=== PATIENT | female | born 1985 | race Caucasian/White ===

== ENCOUNTER 2016-10-20 11:50 | Emergency (ER) | payer MEDICAID, OTHER ==
[~2016-10-20] VITALS: Ht 160 cm; Wt 77.0 kg
[~2016-10-20 11:50] MED LIST: FERR27TA PO; IBUP-1542 PO; ONDA4TAB35 PO; PREN-46 PO; PREN1TAB9 PO
[2016-10-20 11:58] VITALS: Ht 160 cm; Wt 77.0 kg
[2016-10-20] MEDS ORDERED: ONDANSETRON 4 MG INJ IV STA (13:37)
[2016-10-20] MEDS ORDERED: morphine 4 MG/ML VIAL IV STA (13:37)
[2016-10-20] MEDS ORDERED: SOD CHLORIDE 0.9% 1,000 ML IV STA (13:37)
--- NOTE | 2016-10-20 14:37 | RADRPT ---
PROCEDURE: US Abdomen (right upper quadrant). CLINICAL INDICATION: Abdominal pain. TECHNIQUE: Multiple real-time longitudinal and transverse images of the right upper quadrant of th e abdomen were acquired utilizing a curved array transducer. Images were reviewed on a high-resoluti on PACS workstation. COMPARISON: None FINDINGS: The liver is normal in size and echotexture without focal mass or intrahepatic biliary dilatation. There is normal hepatopedal flow within the main portal vein. The gallbladder is well displayed wit hout filling defects or wall thickening The common bile duct measures 4.2 mm in maximal dimension. The visualized portions of the pancreas are unremarkable with obscuration of the tail of the pancre as. No free fluid is identified. The right kidney measures 11.5 cm in length. There is normal echogenicity within the right kidney. There is no perinephric fluid collection. No hydronephrosis, mass, or calculus is seen. IMPRESSION: 1. Unremarkable right upper quadrant ultrasound. RPTAT: [facility] Physician Anthony Date Time Electronically viewed and signed by Physician Anthony on 10/20/2016 14:36 /
[2016-10-20 14:43] LABS: ADD UMIC NO; URINE BILIRUBIN (Dip) NEGATIVE (NEGATIVE); URINE BLOOD (Dip) NEGATIVE (NEGATIVE); URINE COLOR LT. YELLOW (YELLOW); URINE GLUCOSE (Dip) NEGATIVE (NEGATIVE); URINE KETONES (Dip) NEGATIVE (NEGATIVE); URINE LEUKOCYTE ESTERASE (Dip) NEGATIVE (NEGATIVE); URINE NITRITE (Dip) NEGATIVE (NEGATIVE); URINE TOTAL PROTEIN (Dip) NEGATIVE (NEGATIVE); URINE UROBILINOGEN (Dip) 1.0 E.U./dL (0.1-1.0)
[2016-10-20 14:43] LABS: ADD SCAN DIFF NO
[2016-10-20 14:50] LABS: BASOPHILS % 0.3 % (0.0-2.0); EOSINOPHILS # 0.1 10^3/ul (0.0-0.5); HEMATOCRIT 39.9 % (37.0-47.0); HEMOGLOBIN 12.8 g/dl (12.0-16.0); LYMPHOCYTES # 0.7 10^3/ul (0.8-2.9); LYMPHOCYTES % 7.6 % (15.0-51.0); MEAN CORPUSCULAR HEMOGLOBIN 26.8 pg (29.0-33.0); MEAN CORPUSCULAR HGB CONC 32.1 g/dl (32.0-37.0); MEAN CORPUSCULAR VOLUME 83.5 fl (82.0-101.0); MEAN PLATELET VOLUME 10.3 fl (7.4-10.4); MONOCYTE # 0.4 10^3/ul (0.3-0.9); MONOCYTES % 4.4 % (0.0-11.0); NEUTROPHIL # 7.9 10^3/ul (1.6-7.5); NEUTROPHILS % 86.5 % (39.0-77.0); PLATELET COUNT 265 10^3/UL (140-415); RED BLOOD COUNT 4.78 10^6/ul (4.20-5.40); RED CELL DISTRIBUTION WIDTH 13.7 % (11.5-14.5); WHITE BLOOD COUNT 9.1 10^3/ul (4.8-10.8)
[2016-10-20 15:09] LABS: CHLORIDE 101 mmol/L (97-110)
[2016-10-20 15:10] LABS: ALBUMIN 4.6 g/dl (3.3-4.9); POTASSIUM 3.6 mmol/L (3.5-5.1); SODIUM 143 mmol/L (135-144)
[2016-10-20 15:12] LABS: CREATININE 0.57 mg/dl (0.44-1.00)
[2016-10-20 15:13] LABS: ALANINE AMINOTRANSFERASE 21 IU/L (13-69); ALBUMIN/GLOBULIN RATIO 1.43; ALKALINE PHOSPHATASE 72 IU/L (42-121); ANION GAP 18 (8-16); ASPARTATE AMINO TRANSFERASE 19 IU/L (15-46); BILIRUBIN,INDIRECT 0.9 mg/dl (0-1.1); BILIRUBIN,TOTAL 0.9 mg/dl (0.2-1.3); BLOOD UREA NITROGEN 8 mg/dl (7-20); CALCIUM 9.4 mg/dl (8.4-10.2); CARBON DIOXIDE 28 mmol/L (21-31); GLUCOSE 91 mg/dl (70-220); TOTAL PROTEIN 7.8 g/dl (6.1-8.1)
[2016-10-20 15:22] LABS: TROPONIN-I < 0.012 ng/ml (0.00-0.12)
--- NOTE | 2016-10-20 16:00 | RADRPT ---
PROCEDURE: CT Abdomen and Pelvis without contrast. CLINICAL INDICATION: Abdominal and pelvic pain. Upper abdominal pain radiating to the back. TECHNIQUE: CT scan of the abdomen and pelvis without contrast was performed. Coronal and sagittal reformatted images were obtained from the axial source images. Images were reviewed on a high-resolu [employer] PACS workstation. Total exam DLP is 1037.44 mGy-cm. CTDIvol is 18.38 mGy. One or more of the following dose reduction techniques were used: Automated exposure control, adjustment of the mA and/ or kV according to patient size, use of iterative reconstruction technique. COMPARISON: Right upper quadrant abdomen ultrasound done earlier the same day which was normal. FINDINGS: The lung bases are normal. There is no pleural effusion. The liver is normal in size and diffusely decreased in attenuation. There is no focal hepatic lesio n. The gallbladder and bile ducts are normal. The spleen is normal in size. There is no focal splenic lesion. Both adrenals are normal with no enlargement or mass. The pancreas is unremarkable with no mass or evidence of pancreatitis. There is no renal mass or hydronephrosis. There is no renal calculus or ureteral calculus. The abdominal aorta is not dilated. There is no retroperitoneal lymphadenopathy or mass. There is no pelvic lymphadenopathy or mass. There is an IUD in satisfactory position within the end ometrial canal.. The bladder and distal ureters are normal. The appendix is well seen and appears normal. The bowel and mesentery are normal. There is no free fluid or free gas. The osseous structures are unremarkable with no fracture or lytic lesion. IMPRESSION: 1. Mild fatty metamorphosis of the liver. 2. No urinary tract calculus or hydronephrosis. 3. Normal appendix. 4. IUD in satisfactory position in the endometrial canal. 5. Otherwise normal noncontrast CT scan of the abdomen and pelvis. RPTAT: QQ .Misha Paul MD, Date Time Electronically viewed and signed by .Misha Paul MD, on 10/20/2016 16:00 .R/
[2016-10-20] MEDS ORDERED: LIDOCAINE/MYLANTA 40 ML BTL PO STA (16:36)
[2016-10-20] MEDS ORDERED: ONDA4TAB14 PO (16:53)
[2016-10-20] MEDS ORDERED: IBUP-1542 PO (17:27)
--- NOTE | 2016-10-20 17:34 | ERD ---
ER Documentation Chief Complaint Date/Time DATE: 10/20/16 TIME: 17:29 Chief Complaint ap radiating to back x 1 day HPI Patient is a 31-year-old female with PMHX of gastritis, PUD who presents to the emergency department with upper abdominal pain 1 day. Patient states the pain is localized to her epigastric, right upper quadrant radiates to her back. She describes the pain to be episodic however she states that the pain is burning and sharp in nature. Patient with the chills however she denies any fevers. Patient reports nausea and vomiting. Patient states she has vomited 6 times, nonbloody nonbilious. Patient denies any pain with urination, vaginal bleeding , excessive vaginal discharge or pelvic pain. Patient denies any shortness of breath, chest pain, arm pain, jaw pain or diaphoresis. She states that her last menstrual period was on 10/02/2016. ROS All systems reviewed and are negative except as per history of present illness. Medications Home Meds Active Scripts Ibuprofen* (Motrin*) 600 Mg Tab, 600 MG PO Q6, #30 TAB Prov:ALISHA JONES PA-C 10/20/16 Ondansetron (Ondansetron Odt) 4 Mg Tab.rapdis, 4 MG PO Q6H Y for NAUSEA AND/OR VOMITING, #10 TAB Prov:ALISHA JONES PA-C 10/20/16 Ibuprofen* (Motrin*) 600 Mg Tab, 600 MG PO Q6, #20 TAB Prov:CHRISTOPHER DESAI MD 01/19/16 Reported Medications [none] Unknown Strength No Conflict Check 09/30/15 Vit #108/Iron/Fa ( ONE TABLET) 1 Each Tablet, 1 EACH PO DAILY 08/05/13 Ondansetron Hcl* (Zofran* ODT) 4 Mg/Tab Tab.rapdis, 4 MG PO PRN 02/02/13 Ferrous Sulfate (Iron) 1 Tab Tablet, 1 TAB PO TID 02/02/13 Vits W-Ca,Fe,Fa(<1MG) ( #2) 1 Tab Tablet, 1 TAB PO DAILY 02/02/13 Allergies Allergies: Coded Allergies: No Known Allergy (Unverified , 10/20/16) PMhx/Soc History of Surgery: Yes (C SECTION X2) Anesthesia Reaction: No Hx Neurological Disorder: No Hx Respiratory Disorders: No Hx Cardiac Disorders: No Hx Psychiatric Problems: No Hx Miscellaneous Medical Probl: Yes (gastritis; gastric ulcer; cholystitis) Hx Alcohol Use: Yes (OCCASIONALLY) Hx Substance Use: No Hx Tobacco Use: No Smoking Status: Never smoker Physical Exam Vitals Vital Signs Date Time Temp Pulse Resp B/P Pulse Ox O2 Delivery O2 Flow Rate FiO2 10/20/16 18:20 98.3 18 118/70 99 10/20/16 11:58 98.9 85 18 125/67 99 Physical Exam GENERAL: Well-developed, well-nourished female. Appears in no acute distress. HEAD: Normocephalic, atraumatic. EYES: Pupils are equally reactive bilaterally. EOMs grossly intact. No conjunctival erythema. ENT: Moist mucous membranes. No uvula deviation. No kissing tonsils. NECK: Supple. No meningismus. Normal range of motion of the neck. LUNG: Clear to auscultation bilaterally. No rhonchi, wheezing, rales or coarse breath sounds. HEART: Regular rate and rhythm. No murmurs, rubs or gallops. ABDOMEN: No scars, ecchymosis or rashes noted. Soft and nondistended. Tender to palpation in the epigastric region, right upper quadrant, left upper quadrant.. Positive bowel sounds in all four quadrants. No rebound tenderness, no guarding. (-) McBurney's point tenderness. No CVA tenderness. BACK: No midline tenderness. EXTREMITIES: Equal pulses bilaterally. No peripheral clubbing, cyanosis or edema. No unilateral leg swelling. NEUROLOGIC: Alert and oriented. Moving all four extremities without any difficulty. Normal speech. Steady gait. SKIN: Normal color. Warm and dry. No rashes or lesions. Result Diagram: 10/20/16 1430 10/20/16 1430 Results 24 hrs Laboratory Tests Test 10/20/16 14:00 10/20/16 14:30 Urine Bilirubin NEGATIVE Urine Clarity CLEAR Urine Color LT. YELLOW Urine Glucose NEGATIVE% Urine Hemoglobin NEGATIVE Urine Ketones NEGATIVE Urine Leukocyte Esterase NEGATIVE Urine Nitrite NEGATIVE Urine Specific [place] 1.010 Urine Total Protein NEGATIVE Urine Urobilinogen 1.0 E.U./dL Urine pH 8.0 Alanine Aminotransferase (ALT/SGPT) 21IU/L Albumin 4.6g/dl Albumin/Globulin Ratio 1.43 Alkaline Phosphatase 72IU/L Anion Gap 18 Aspartate Amino Transf (AST/SGOT) 19IU/L Basophils # 0.010^3/ul Basophils % 0.3% Blood Urea Nitrogen 8mg/dl Calcium Level 9.4mg/dl Carbon Dioxide Level 28mmol/L Chloride Level 101mmol/L Creatinine 0.57mg/dl Direct Bilirubin 0.00mg/dl Eosinophils # 0.110^3/ul Eosinophils % 1.0% Globulin 3.20g/dl Glucose Level 91mg/dl Hematocrit 39.9% Hemoglobin 12.8g/dl Indirect Bilirubin 0.9mg/dl Lipase 42U/L Lymphocytes # 0.710^3/ul Lymphocytes % 7.6% Mean Corpuscular Hemoglobin 26.8pg Mean Corpuscular Hemoglobin Concent 32.1g/dl Mean Corpuscular Volume 83.5fl Mean Platelet Volume 10.3fl Monocytes # 0.410^3/ul Monocytes % 4.4% Neutrophils # 7.910^3/ul Neutrophils % 86.5% Nucleated Red Blood Cells # 0.010^3/ul Nucleated Red Blood Cells % 0.0/100WBC Platelet Count 88399^3/UL Potassium Level 3.6mmol/L Red Blood Count 4.7810^6/ul Red Cell Distribution Width 13.7% Sodium Level 143mmol/L Total Bilirubin 0.9mg/dl Total Protein 7.8g/dl Troponin I < 0.012ng/ml White Blood Count 9.110^3/ul Current Medications Medications (Trade) Dose Ordered Sig/Dawna Route PRN Reason Start Time Stop Time Status Last Admin Dose Admin Sodium Chloride (NS) 1,000 ml @ 1,000 mls/hr Q1H STAT IV 10/20/16 13:37 10/20/16 14:36 DC 10/20/16 14:27 Morphine Sulfate (morphine) 4 mg ONCE STAT IV 10/20/16 13:37 10/20/16 13:39 DC 10/20/16 14:27 Ondansetron HCl (Zofran Inj) 4 mg ONCE STAT IV 10/20/16 13:37 10/20/16 13:39 DC 10/20/16 14:27 Miscellaneous Medication (Gi Cocktail (2)) 40 ml ONCE STAT PO 10/20/16 16:36 10/20/16 16:39 DC 10/20/16 16:43 Procedures/MDM ED COURSE: The patient was stable throughout ED course. I kept the patient and/or family informed of laboratory and diagnostic imaging results throughout the ED course. DIAGNOSTIC IMAGING: Read by radiologist. Patient: KIM ARCHER : 1985 Age: 31 Sex: F MR #: [id number] DOS: 10/20/16 1337 Ordering MD: ALISHA JONES PA-C Location: [facility] Room/Bed: PROCEDURE: US Abdomen (right upper quadrant). CLINICAL INDICATION: Abdominal pain. TECHNIQUE: Multiple real-time longitudinal and transverse images of the right upper quadrant of the abdomen were acquired utilizing a curved array transducer. Images were reviewed on a high-resolution PACS workstation. COMPARISON: None FINDINGS: The liver is normal in size and echotexture without focal mass or intrahepatic biliary dilatation. There is normal hepatopedal flow within the main portal vein. The gallbladder is well displayed without filling defects or wall thickening The common bile duct measures 4.2 mm in maximal dimension. The visualized portions of the pancreas are unremarkable with obscuration of the tail of the pancreas. No free fluid is identified. The right kidney measures 11.5 cm in length. There is normal echogenicity within the right kidney. There is no perinephric fluid collection. No hydronephrosis, mass, or calculus is seen. IMPRESSION: 1. Unremarkable right upper quadrant ultrasound. RPTAT: [facility] Physician Anthony Date Time Electronically viewed and signed by Physician Anthony on 10/20/2016 14: 36 JH/ CC: ALIHSA JONES PA-C Patient: KIM ARCHER : 1985 Age: 31 Sex: F MR #: [id number] DOS: 10/20/16 1514 Ordering MD: ALISHA JONES PA-C Location: [facility] Room/Bed: PROCEDURE: CT Abdomen and Pelvis without contrast. CLINICAL INDICATION: Abdominal and pelvic pain. Upper abdominal pain radiating to the back. TECHNIQUE: CT scan of the abdomen and pelvis without contrast was performed. Coronal and sagittal reformatted images were obtained from the axial source images. Images were reviewed on a high-resolution PACS workstation. Total exam DLP is 1037.44 mGy-cm. CTDIvol is 18.38 mGy. One or more of the following dose reduction techniques were used: Automated exposure control, adjustment of the mA and/or kV according to patient size, use of iterative reconstruction technique. COMPARISON: Right upper quadrant abdomen ultrasound done earlier the same day which was normal. FINDINGS: The lung bases are normal. There is no pleural effusion. The liver is normal in size and diffusely decreased in attenuation. There is no focal hepatic lesion. The gallbladder and bile ducts are normal. The spleen is normal in size. There is no focal splenic lesion. Both adrenals are normal with no enlargement or mass. The pancreas is unremarkable with no mass or evidence of pancreatitis. There is no renal mass or hydronephrosis. There is no renal calculus or ureteral calculus. The abdominal aorta is not dilated. There is no retroperitoneal lymphadenopathy or mass. There is no pelvic lymphadenopathy or mass. There is an IUD in satisfactory position within the endometrial canal.. The bladder and distal ureters are normal. The appendix is well seen and appears normal. The bowel and mesentery are normal. There is no free fluid or free gas. The osseous structures are unremarkable with no fracture or lytic lesion. IMPRESSION: 1. Mild fatty metamorphosis of the liver. 2. No urinary tract calculus or hydronephrosis. 3. Normal appendix. 4. IUD in satisfactory position in the endometrial canal. 5. Otherwise normal noncontrast CT scan of the abdomen and pelvis. RPTAT: QQ .Christopher Paul MD, MD Date Time Electronically viewed and signed by .Christopher Paul MD, on 10/20/2016 16:00 .R/ CC: ROBERT,JISSILLE PA-C MEDICATIONS GIVEN: IV fluids, Zofran, morphine. Patient tolerated medication well with no adverse reactions. A few hours into ED course, patient started to report more pain. Patient was given a GI cocktail which she stated did help her with her symptoms. MEDICAL DECISION MAKING: This is a 31 year old female who upper abdominal pain, nausea and vomiting x 1 day. Vital signs were reviewed. Patient is afebrile. CBC showed no evidence of systemic infection or severe anemia. CMP showed no evidence of electrolyte abnormalities, severe acidosis, alkalosis, renal failure, or liver disease. Lipase showed no evidence of acute pancreatitis. Troponin was negative. UA showed no evidence of acute infection or hematuria. Unremarkable right upper quadrant ultrasound was noted. Given that patient continued having pain, CT abdomen and pelvis was obtained. CT abdomen and pelvis showed Mild fatty metamorphosis of the liver. No urinary tract calculus or hydronephrosis. Normal appendix. IUD in satisfactory position in the endometrial canal. Otherwise normal noncontrast CT scan of the abdomen and pelvis. Patient was also given a GI cocktail, which stated did improve her pain. At this time, patient's presentation is most consistent with epigastric pain. I have a much lower clinical concern for acute coronary syndrome, AAA, mesenteric ischemia, lower lobe pneumonia, DKA, bowel perforation, cholecystitis, hepatic abscess, pancreatitis, splenic rupture, diverticulitis, UTI, pyelonephritis, nephrolithiasis, appendicitis, constipation, . Unable to rule out PUD at this time. Patient will need to follow up with a GI specialist for further management and workup of her symptoms including endoscopy/colonoscopy. PRESCRIPTIONS: Ibuprofen, Zofran DISCHARGE: At this time, patient is stable for discharge and outpatient management. I have instructed the patient to follow-up with his/her primary care physician in 1-2 days. I have instructed the patient to promptly return to the ER at any time for any new or worsening symptoms including increased pain, nausea, vomiting, diarrhea, fever, weakness or LOC. The patient and/or family expressed understanding of and agreement with this plan. All questions were answered. Home care instructions were provided. Departure Diagnosis: Primary Impression: Abdominal pain Abdominal location: upper abdomen, unspecified Qualified Code: R10.10 - Pain of upper abdomen Patient Instructions: Abdominal Pain, Unknown Cause, (Female) Referrals: EKATERINA PLUMMER (PCP) Additional Instructions: Call your primary care doctor TOMORROW for an appointment during the next 1-2 days.See the doctor sooner or return here if your condition worsens before your appointment time. She will need to follow-up with a GI specialist for further management of her symptoms. Unable to rule out PUD or ulcers at this time. Patient was advised she will need to have an endoscopy/colonoscopy on an outpatient basis. ALISHA JONES PA-C Oct 20, 2016 17:34
[2016-10-20 18:20] VITALS: BP 118/70; RESP 18; TEMP 98.3
== END 2016-10-20 19:02 | disposition home or self-care (01) ==
LOC: FTE 11:50
DX: R10.11 Right upper quadrant pain (principal); R10.12 Left upper quadrant pain; R11.2 Nausea with vomiting, unspecified; R10.2 Pelvic and perineal pain
CPT/HCPCS: 74176; 76705; 80053; 81003; 83690; 84484; 85025; J2270; J2405; J7030; Z7610; 36415; 96374; 96375

== ENCOUNTER 2017-07-09 20:54 | Emergency (ER) | payer SELFPAY ==
[~2017-07-09] VITALS: Ht 162.6 cm; Wt 74.5 kg
[~2017-07-09 20:54] MED LIST changes: +ONDA4TAB14 PO
[2017-07-09 20:56] VITALS: Ht 162.6 cm; Wt 74.5 kg
[2017-07-09] MEDS ORDERED: KETOROLAC 30 MG INJ IM STA (22:14)
--- NOTE | 2017-07-09 22:51 | RADRPT ---
PROCEDURE: CHEST - 1 VIEW CLINICAL INDICATION: 32-year-old female with chest/abdominal pain. TECHNIQUE: A single frontal PA erect view of the chest was performed. The images were reviewed on a PACS workstation. COMPARISON: None. FINDINGS: The cardiomediastinal silhouette has a normal appearance. There is no evidence for an infiltrate. There is no evidence for congestive heart failure. There is no evidence for pneumothorax. The osseou s structures are intact. IMPRESSION: No evidence for active cardiopulmonary disease. .Sincere Mahoney MD, MD Date Time Electronically viewed and signed by .Sincere Mahoney MD, on 07/09/2017 22:50 .M/
[2017-07-09 23:16] LABS: BASOPHILS % 0.4 % (0.0-2.0); EOSINOPHILS # 0.1 10^3/ul (0.0-0.5); EOSINOPHILS % 1.4 % (0.0-7.0); HEMATOCRIT 41.1 % (37.0-47.0); HEMOGLOBIN 13.4 g/dl (12.0-16.0); LYMPHOCYTES # 2.1 10^3/ul (0.8-2.9); LYMPHOCYTES % 23.1 % (15.0-51.0); MEAN CORPUSCULAR HEMOGLOBIN 27.1 pg (29.0-33.0); MEAN CORPUSCULAR HGB CONC 32.6 g/dl (32.0-37.0); MEAN CORPUSCULAR VOLUME 83.2 fl (82.0-101.0); MEAN PLATELET VOLUME 10.1 fl (7.4-10.4); MONOCYTE # 0.5 10^3/ul (0.3-0.9); MONOCYTES % 5.4 % (0.0-11.0); NEUTROPHIL # 6.3 10^3/ul (1.6-7.5); NEUTROPHILS % 69.5 % (39.0-77.0); PLATELET COUNT 299 10^3/UL (140-415); RED BLOOD COUNT 4.94 10^6/ul (4.20-5.40); RED CELL DISTRIBUTION WIDTH 13.6 % (11.5-14.5); WHITE BLOOD COUNT 9.1 10^3/ul (4.8-10.8)
[2017-07-09 23:35] LABS: ALANINE AMINOTRANSFERASE 28 IU/L (13-69); ALBUMIN 4.9 g/dl (3.3-4.9); ALBUMIN/GLOBULIN RATIO 1.28; ALKALINE PHOSPHATASE 74 IU/L (42-121); ANION GAP 18 (8-16); ASPARTATE AMINO TRANSFERASE 21 IU/L (15-46); BILIRUBIN,INDIRECT 0.9 mg/dl (0-1.1); BILIRUBIN,TOTAL 0.9 mg/dl (0.2-1.3); BLOOD UREA NITROGEN 11 mg/dl (7-20); CALCIUM 10.1 mg/dl (8.4-10.2); CARBON DIOXIDE 26 mmol/L (21-31); CHLORIDE 103 mmol/L (97-110); CREATININE 0.71 mg/dl (0.44-1.00); GLUCOSE 90 mg/dl (70-220); POTASSIUM 3.7 mmol/L (3.5-5.1); SODIUM 143 mmol/L (135-144); TOTAL PROTEIN 8.7 g/dl (6.1-8.1)
[2017-07-09 23:48] LABS: TROPONIN-I < 0.012 ng/ml (0.00-0.12)
[2017-07-09 23:54] LABS: ADD UMIC YES; UR ASCORBIC ACID NEGATIVE (NEGATIVE); UR BACTERIA FEW /HPF (NONE SEEN); UR BILIRUBIN (Dip) NEGATIVE (NEGATIVE); UR BLOOD (Dip) 1+ mg/dL (NEGATIVE); UR CLARITY CLEAR (CLEAR); UR COLOR YELLOW (YELLOW); UR GLUCOSE (Dip) NEGATIVE (NEGATIVE); UR KETONES (Dip) NEGATIVE (NEGATIVE); UR LEUKOCYTE ESTERASE (Dip) NEGATIVE Leu/ul (NEGATIVE); UR NITRITE (Dip) NEGATIVE (NEGATIVE); UR RBC 1 /HPF (0-5); UR SPECIFIC GRAVITY (Dip) 1.017 (1.003-1.030); UR TOTAL PROTEIN (Dip) NEGATIVE (NEGATIVE); UR UROBILINOGEN (Dip) NEGATIVE (NEGATIVE)
[2017-07-10] MEDS ORDERED: IBUP800T25 PO (00:25)
[2017-07-10 00:31] VITALS: BP 121/78; PULSE 69; RESP 18; TEMP 98.3
--- NOTE | 2017-07-10 00:34 | ERD ---
ER Documentation Chief Complaint Chief Complaint chest pain since 4 pm today HPI 2-year-old female complaining of chest pain 1 day. Patient states that she was at work with her chest pain developed. Patient's pain is to the left chest wall and it feels like her heart is racing. She also has pain with sharp deep breaths. Denies any coughing. Has not taken medication for symptoms. Denies medical problems. Denies OCP use. Denies recent surgeries. Denies recent travel. Has no blood clot disorders. Denies smoking. ROS All systems reviewed and are negative except as per history of present illness. Medications Home Meds Active Scripts Ibuprofen* (Motrin*) 800 Mg Tab, 800 MG PO Q6, #30 TAB Prov:SARAH TARIQ PA-C 07/10/17 Ibuprofen* (Motrin*) 600 Mg Tab, 600 MG PO Q6, #30 TAB Prov:ALISHA JONES PA-C 10/20/16 Ondansetron (Ondansetron Odt) 4 Mg Tab.rapdis, 4 MG PO Q6H Y for NAUSEA AND/OR VOMITING, #10 TAB Prov:ALISHA JONES PA-C 10/20/16 Ibuprofen* (Motrin*) 600 Mg Tab, 600 MG PO Q6, #20 TAB Prov:CHRISTOPHER DESAI MD 01/19/16 Reported Medications [none] Unknown Strength No Conflict Check 09/30/15 Vit #108/Iron/Fa ( ONE TABLET) 1 Each Tablet, 1 EACH PO DAILY 08/05/13 Ondansetron Hcl* (Zofran* ODT) 4 Mg/Tab Tab.rapdis, 4 MG PO PRN 02/02/13 Ferrous Sulfate (Iron) 1 Tab Tablet, 1 TAB PO TID 02/02/13 Vits W-Ca,Fe,Fa(<1MG) ( #2) 1 Tab Tablet, 1 TAB PO DAILY 02/02/13 Allergies Allergies: Coded Allergies: No Known Allergy (Unverified , 10/20/16) PMhx/Soc History of Surgery: Yes (C SECTION X3) Anesthesia Reaction: No Hx Neurological Disorder: No Hx Respiratory Disorders: No Hx Cardiac Disorders: No Hx Psychiatric Problems: No Hx Miscellaneous Medical Probl: Yes (gastritis; gastric ulcer; cholystitis) Hx Alcohol Use: Yes (OCCASIONALLY) Hx Substance Use: No Hx Tobacco Use: No Smoking Status: Never smoker Physical Exam Vitals Vital Signs Date Time Temp Pulse Resp B/P Pulse Ox O2 Delivery O2 Flow Rate FiO2 07/09/17 20:56 98.3 76 20 138/78 99 Physical Exam GENERAL: The patient is well-appearing, well-nourished, in no acute distress HEENT: Atraumatic. Conjunctivae are pink. Pupils equal, round, and reactive to light. There is no scleral icterus. Tympanic membranes clear bilaterally. Oropharynx clear. No nystagmus or photophobia. NECK: C-spine is soft and supple. There is no meningismus. There is no cervical lymphadenopathy. CHEST: Clear to auscultation bilaterally. There are no rales, wheezes or rhonchi. HEART: Regular rate and rhythm. No murmurs, clicks, rubs or gallops. No S3 or S4. SKIN: There is no apparent rash or petechiae. The skin is warm and dry. Result Diagram: 07/09/17223607/09/172236 Results 24 hrs Laboratory Tests Test 07/09/17 22:37 07/09/17 23:20 White Blood Count 9.110^3/ul Red Blood Count 4.9410^6/ul Hemoglobin 13.4g/dl Hematocrit 41.1% Mean Corpuscular Volume 83.2fl Mean Corpuscular Hemoglobin 27.1pg Mean Corpuscular Hemoglobin Concent 32.6g/dl Red Cell Distribution Width 13.6% Platelet Count 47167^3/UL Mean Platelet Volume 10.1fl Neutrophils % 69.5% Lymphocytes % 23.1% Monocytes % 5.4% Eosinophils % 1.4% Basophils % 0.4% Nucleated Red Blood Cells % 0.0/100WBC Neutrophils # 6.310^3/ul Lymphocytes # 2.110^3/ul Monocytes # 0.510^3/ul Eosinophils # 0.110^3/ul Basophils # 0.010^3/ul Nucleated Red Blood Cells # 0.010^3/ul D-Dimer 220.00ng/ml D-Dimer Comment Sodium Level 143mmol/L Potassium Level 3.7mmol/L Chloride Level 103mmol/L Carbon Dioxide Level 26mmol/L Anion Gap 18 Blood Urea Nitrogen 11mg/dl Creatinine 0.71mg/dl Glucose Level 90mg/dl Calcium Level 10.1mg/dl Total Bilirubin 0.9mg/dl Direct Bilirubin 0.00mg/dl Indirect Bilirubin 0.9mg/dl Aspartate Amino Transf (AST/SGOT) 21IU/L Alanine Aminotransferase (ALT/SGPT) 28IU/L Alkaline Phosphatase 74IU/L Troponin I < 0.012ng/ml Total Protein 8.7g/dl Albumin 4.9g/dl Globulin 3.80g/dl Albumin/Globulin Ratio 1.28 Lipase 72U/L Serum HCG, Qualitative NEGATIVE Urine Color YELLOW Urine Clarity CLEAR Urine pH 5.0 Urine Specific [place] 1.017 Urine Ketones NEGATIVEmg/dL Urine Nitrite NEGATIVEmg/dL Urine Bilirubin NEGATIVEmg/dL Urine Urobilinogen NEGATIVEmg/dL Urine Leukocyte Esterase NEGATIVELeu/ul Urine Microscopic RBC 1/HPF Urine Microscopic WBC 2/HPF Urine Bacteria FEW/HPF Urine Hemoglobin 1+mg/dL Urine Glucose NEGATIVEmg/dL Urine Total Protein NEGATIVEmg/dl Current Medications Medications (Trade) Dose Ordered Sig/Dawna Route PRN Reason Start Time Stop Time Status Last Admin Dose Admin Ketorolac Tromethamine (Toradol) 30 mg ONCE STAT IM 07/09/17 22:14 07/09/17 22:17 DC 07/09/17 23:24 Procedures/MDM DIAGNOSTIC IMAGING REPORT Patient: KIM ARCHER : 1985 Age: 32 Sex: F MR #: [id number] DOS: 07/09/17 2214 Ordering MD: NATALY TARIQ PA-C Location: [facility] Room/Bed: PROCEDURE: CHEST - 1 VIEW CLINICAL INDICATION: 32-year-old female with chest/abdominal pain. TECHNIQUE: A single frontal PA erect view of the chest was performed. The images were reviewed on a PACS workstation. COMPARISON: None. FINDINGS: The cardiomediastinal silhouette has a normal appearance. There is no evidence for an infiltrate. There is no evidence for congestive heart failure. There is no evidence for pneumothorax. The osseous structures are intact. IMPRESSION: No evidence for active cardiopulmonary disease. ER Course: Normal Sinus Rhythm, 74 BPM. Normal axis. No STEMI MDM: 32-year-old female complaining of chest pain. Patient's EKG, chest x-ray, d-dimer and troponins are all within normal limits. Patient's vital signs are stable. Patient's exam is not concerning. I have low suspicion for cardiac or pulmonary emergency. Patient is discharged with strict ER precautions and recommended to follow-up with primary care within 1-2 days. Patient is discharged with pain medication. Patient is told if symptoms change or worsen to return to the ER immediately. All questions answered at discharge. Departure Diagnosis: Primary Impression: Chest pain Condition: Stable Patient Instructions: Chest Pain, Uncertain Cause Referrals: EKATERINA PLUMMER (PCP) Additional Instructions: FOLLOW UP WITH YOUR PRIMARY CARE PHYSICIAN TOMORROW.Return to this facility if you are not improving as expected. SARAH TARIQ PA-C Jul 10, 2017 00:34
== END 2017-07-10 00:35 | disposition home or self-care (01) ==
LOC: FTE 20:54
DX: R07.9 Chest pain, unspecified (principal)
CPT/HCPCS: 36415; 71010; 80053; 81001; 83690; 84484; 84703; 85025; 85378; 93005; 96372; 99285; J1885